=== PATIENT | female | born 1960 | race Caucasian/White ===

== ENCOUNTER → 2017-03-13 | Outpatient (CLI) | payer BC ==
[~2017-03-13] MED LIST: ACET1TAB84 PO; FOLI1TAB7 PO; GABA-113 PO; HYDR25TA4 PO; METH2.5T PO; METO25TA3 PO; MTR600X PO; RANI150T3 PO
--- NOTE | 2017-03-13 13:48 | MAMMOGRAPHY REPORT ---
BILATERAL DIGITAL SCREENING MAMMOGRAM TOMOSYNTHESIS WITH CAD: 03/13/2017 CLINICAL HISTORY: Routine screening. Patient has no complaints. TECHNIQUE: Breast tomosynthesis in addition to standard 2D mammography was performed. Current study was also evaluated with a Computer Aided Detection (CAD) system. COMPARISON: Comparison is made to exams dated: 03/12/2016 mammogram, 03/08/2015 mammogram, 03/03/2014 m ammogram, 02/24/2013 mammogram, 02/20/2012 mammogram, and 02/14/2011 mammogram - [facility]. BREAST COMPOSITION: There are scattered areas of fibroglandular density in both breasts. FINDINGS: No suspicious masses, calcifications, or areas of architectural distortion are noted in ei ther breast. There has been no significant interval change compared to prior exams. Bilateral asymme tries are stable, including an asymmetry in the right retroareolar breast on the cc view which is sta ble compared to prior exams including the 2008 exam. IMPRESSION: ACR BI-RADS CATEGORY 2: BENIGN There is no mammographic evidence of malignancy. A 1 year screening mammogram is recommended. The pa tient will receive written notification of the results. Approximately 10% of breast cancers are not detected with mammography. A negative mammographic report should not delay biopsy if a clinically suggestive mass is present. Marcelle Henry M.D. /:03/13/2017 12:10:30 Nailhead Puncher: Vannesa Guadalupe [facility] letter sent: Normal 1/2 BI-RADS Code: ACR BI-RADS Category 2: Benign
== END | disposition home or self-care (01) ==
LOC: C.MAMM 09:09
PROVIDERS: ATTEND Family Medicine
DX: Z12.31 Encounter for screening mammogram for malignant neoplasm of breast (principal)

== ENCOUNTER → 2017-04-03 | Day surgery (SDC) | payer BC ==
[2017-03-31 11:32] VITALS: BMI 27.0
--- NOTE | 2017-03-31 12:11 | PAT Medication Instructions ---
Service Date Mar 31, 2017. Current Home Medication List Hydrochlorothiazide (Hctz), 25 MG PO QAM Metoprolol Succ (Toprol Xl) (Toprol-Xl), 25 MG PO QAM Ranitidine Hcl (Zantac), 150 MG PO HS Medication Instructions For Your Scheduled Surgery - Hold the following medications the morning of surgery: Hydrochlorothiazide (Hctz), 25 MG PO QAM - Take the following medications the morning of surgery with a sip of water OTHERWISE NOTHING TO EAT OR DRINK AFTER MIDNIGHT: Metoprolol Succ (Toprol Xl) (Toprol-Xl), 25 MG PO QAM - Take the following medications as scheduled the night before surgery: Ranitidine Hcl (Zantac), 150 MG PO HS If you have any questions please call us at [phone] or [phone] or [phone]
[2017-03-31 13:18] LABS: BASO % 0.7 %; BASO ABS # 0.04 K/uL (0-0.2); COMPLETE YES; EOS % 4.9 %; HEMATOCRIT 43.7 % (37-47); IG% 0.2 %; LYMPH % 28.4 %; LYMPH ABS # 1.68 K/uL (1.2-3.4); MEAN CELL VOLUME 88.6 fL (80-100); MEAN CORPUSCULAR HEMOGLOBIN 30.2 pg (25-34); MEAN CORPUSCULAR HGB CONC 34.1 g/dl (32-36); MEAN PLATELET VOLUME 10.5 fL (7.4-10.4); MONO % 6.8 %; PLATELET COUNT 399 K/uL (130-400); RED BLOOD COUNT 4.93 M/uL (4.2-5.4); WHITE BLOOD COUNT 5.91 K/uL (4.8-10.8)
[2017-03-31 15:11] LABS: CALCIUM 9.7 mg/dl (8.5-10.1); CREATININE 0.83 mg/dl (0.60-1.20); POTASSIUM 3.8 mmol/L (3.5-5.1)
[2017-03-31 15:14] LABS: ALB/GLOB RATIO 1.1 (0.9-2)
[~2017-04-03] VITALS: Ht 167.6 cm; Wt 75.7 kg
[~2017-04-03] MED LIST changes: +ATROPINE SULFATE 0.1 MG/ML 5ML SYR IV PRN; +CHECK SCOPOLAMINE PATCH PLACEMENT SCH; +EpHEDrine SULFATE INJ 50 MG/ML AMP IV PRN; +FENTANYL CITRATE INJ 50 MCG/1 ML 2 ML VIAL IV PRN; +FENTANYL CITRATE INJ 50 MCG/1 ML 2 ML VIAL ONE; -FOLI1TAB7 PO; -GABA-113 PO; +HYDROmorphone INJ 1 MG/ML SYR IV PRN; +IBUPROFEN 600 MG TAB PO PRN; +KETOROLAC TROMETHAMINE 30 MG/ML VIAL ONE; +LACTATED RINGER'S 1000ML 1,000 ML IV SCH; +LIDOCAINE HCL 2% 2 ML VIAL (20MG/ML) ONE; -METH2.5T PO; +METOCLOPRAMIDE HCL INJ 5 MG/ML 2 ML VIAL IV PRN; +MIDAZOLAM HCL 1 MG/ML 2ML VIAL ONE; +ONDANSETRON INJ 2 MG/ML 2 ML VIAL IV PRN; +OXYCODONE/ACETAMINOPHEN 5-325 TAB PO PRN; +PROPOFOL IV EMULSION 10 MG/ML 20 ML VIAL IV ONE; +SCOPOLAMINE 1.5 MG TDSY TD ONE; +SODIUM CHLORIDE 0.9% 1000ML 1,000 ML IV SCH
[2017-04-03 05:31] VITALS: BP 133/78; PULSE 70; TEMP 37; O2SAT 98; Ht 167.6 cm; Wt 75.7 kg
--- NOTE | 2017-04-03 06:57 | History & Physical Bridge Note ---
H&P Re-Evaluation Bridge Note: I have examined the patient, reviewed the History & Physical and in the interval since the performance of the History & Physical I have noted the following changes of clinical significance: No changes noted
--- NOTE | 2017-04-03 08:14 | Discharge Instructions ---
Discharge Instructions Date of Service Apr 03, 2017. 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 Instructions / Follow-Up Instructions / Follow-Up ACTIVITY RECOMMENDATIONS: * Avoid tampons, douching, hot tubs, pools, and intercourse until bleeding has stopped. * May shower as usual. * No strenuous activity for 24-48 hours. After 24-48 hours, you may do anything you feel like doing (driving and sports are okay). SPECIAL CARE INSTRUCTIONS: Special Diet: * Mild nausea may occur in the immediate post-operative period. * Take clear liquids such as tea, cola or bouillon until all nausea has subsided; you may then resume your normal diet. Special Care: * Light bleeding and vaginal spotting can last from a few days to 3-4 weeks. Call your doctor if bleeding becomes heavier than the heaviest part of your period. * Check your temperature twice a day for one week. If it goes above 100.4 degrees Fahrenheit (38.0 Celsius), notify your doctor. * Call your doctor's office for an appointment for 6 weeks after your surgery. FOLLOW-UP VISIT: Call your doctor's office for an appointment for 6 weeks after your surgery. Current Hospital Diet Patient's current hospital diet: Discharge Diet Recommended Diet: Regular Diet Procedures Procedures Performed: Exam Under Anesthesia, Hysteroscopy, Dilation Currettage, Endometrial Polyp Resection with Myosure Pending Studies Studies pending at discharge: no Medical Emergencies . Who to Call and When: Medical Emergencies: If at any time you feel your situation is an emergency, please call 911 immediately. . Non-Emergent Contact Non-Emergency issues call your: Specialist . . "Provider Documentation" section prepared by Oscar Delong. . VTE Core Measure Inpt VTE Proph given/why not?: Treatment not indicated
--- NOTE | 2017-04-03 08:17 | [facility] Post Operative Brief Note ---
Immediate Operative Summary Operative Date Apr 03, 2017. Pre-Operative Diagnosis Post Menopausal Bleeding Post-Operative Diagnosis Same as preoperative Procedure(s) Performed 1.Exam Under Anesthesia 2. Hysteroscopy 3.Dilation Currettage 4Endometrial Polyp Resection with Myosure Surgeon Dr. Oscar Delong Ug Designer Surgeon(s) None per surgeon Estimated Blood Loss 10ml Findings Patient was taken to the operating room where she was prepped and draped in normal sterile fashion in the dorsolithotomy position. Bladder was catheterized at 100 mL of clear urine was obtained. Speculum was placed in the vagina and Langley retractor was used to retract anterior vagina. Cervix was identified and found to be grossly normal. Cervix was dilated to a size 8 after uterus was sounded for size The hysteroscope was placed into the uterine cavity and the uterine cavity showed a left wall endometrial polyp. uterus appeared atrophic. Both ostia was identified. Rest of uterine cavity uterus was unremarkable. Myosure device was passed through the outflow tracts of the hysteroscope and resection of the polyp performed without any difficulty. Specimen from the resection is sent for pathology analysis. The hysteroscope was removed and a size 2 sharp curet introduced into uterine cavity curettage performed on all 4 quadrants of the uterus . Specimen from curettage is also sent to pathology . All instruments, retractors and sponges are removed from the vagina and accounted for x2 . There is good Hemostasis and Patient Is Sent to Recovery in Stable Condition Fluids (cc crystalloids) 300CC IVF. Net hysterosocpic fluid loss is 250cc Specimens A.) Endometrial Polyp B.) Endometrial Currettings Drains none Anesthesia general Complication(s) None Disposition Recovery Room / PACU
--- NOTE | 2017-04-03 08:26 | Anesthesiology Progress Note ---
Anesthesia Post Op Note Date & Time Apr 03, 2017 at 08:26 Vital Signs Pain Intensity: 0 Vital Signs Past 12 Hours Date Time Temp Pulse Resp B/P (MAP) Pulse Ox O2 Delivery O2 Flow Rate FiO2 04/03/17 08:20 36.5 57 14 126/79 99 Room Air 04/03/17 08:10 55 14 115/74 100 Oxymask 10 04/03/17 08:00 54 14 124/75 100 Oxymask 10 04/03/17 07:52 36.2 61 14 121/78 100 Oxymask 10 04/03/17 05:31 37 70 18 133/78 (96) 98 Room Air Notes Mental Status: alert / awake / arousable, participated in evaluation Pt Amnestic to Procedure: Yes Nausea / Vomiting: adequately controlled Pain: adequately controlled Airway Patency, RR, SpO2: stable & adequate BP & HR: stable & adequate Hydration State: stable & adequate Anesthetic Complications: no major complications apparent
[2017-04-03 08:35] VITALS: BP 125/68; PULSE 53; TEMP 36.5; O2SAT 98
[2017-04-03 09:05] VITALS: BP 119/69; PULSE 57; O2SAT 97
[2017-04-03 09:35] VITALS: BP 114/69; PULSE 60; TEMP 36.5; O2SAT 98
== END | disposition home or self-care (01) ==
LOC: C.ACU 05:01
PROVIDERS: ATTEND Obstetrics & Gynecology
DX: N95.0 Postmenopausal bleeding (principal); D25.9 Leiomyoma of uterus, unspecified; Z80.49 Family history of malignant neoplasm of other genital organs; Z83.3 Family history of diabetes mellitus; Z82.49 Family history of ischemic heart disease and other diseases of the circulatory system

== ENCOUNTER 2019-12-04 08:20 | Observation (INO) ==
[2019-12-04] MEDS ORDERED: hydroCHLOROthiazide 25 MG TAB PO STA (08:57)
--- NOTE | 2019-12-04 08:57 | Emergency Department Note ---
History of Present Illness General Chief Complaint: Neuro Symptoms/Deficit Stated Complaint: FACIAL NUMBNESS, LOSS OF MEMORY Time Seen by Provider: 12/04/19 08:32 Source: patient and RN notes reviewed Mode of arrival: ambulatory Limitations: other (Recent short-term memory loss) History of Present Illness HPI Narrative: This is a 59-year-old female who presents to the ED with a chief complaint of short-term memory loss that started this morning. The patient was transported here by her . He states that this morning she got up and watch TV, read the paper and had some coffee. He states that she told him about Trump testing negative for the Covid-19 virus. The patient then after a short time began not to remember things that she had said. She asked what day it was. She seemed to be somewhat dazed and confused. The states that he checked her and did not find any focal neurologic deficits. The only complaint she has is that her left lip feels a little numb and she feels like she is not in her body. She states that she feels bewildered. 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 Last week she had been doing a lot of preparations for the virus at the [place]. The patient does not remember conversations that she had with her this morning. She does have long-term memory. She remembers the names of her kids, where they work where they live and even the grandkids. The patient does take medication for blood pressure. She is unsure if she took it this morning. Home Medications Home Medications Medication Instructions Recorded Confirmed Type hydrochlorothiazide 25 mg PO QAM #0 tab 10/12/15 12/04/19 History metoprolol succinate 25 mg PO QAM #30 tab 10/12/15 12/04/19 History acetaminophen [Tylenol Extra 500 mg PO Q6H PRN 12/04/19 12/04/19 History Strength] ibuprofen 600 mg PO Q6H PRN 12/04/19 12/04/19 History Allergies Allergy/AdvReac Type Severity Reaction Status Date / Time succinylcholine Allergy Severe "DIDN'T Unverified 12/04/19 08:58 RELAX ME" Penicillins Allergy Intermediate RASH Verified 12/04/19 08:58 Past Med/Surg History Social History Feels Safe at Home: Yes Smoking Status: Never smoker Review of Systems A total of 10 systems reviewed and were otherwise negative Physical Exam Vital Signs: Vital Signs - 24 hr 12/04/19 08:24 12/04/19 08:49 12/04/19 09:16 Temperature 36.5 C Temperature Source Oral Pulse Rate 106 H Pulse Rate [Finger ] 90 Respiratory Rate 20 16 Respiratory Effort / Characteristics Non-Labored Sponta neous Non-Labored Respiratory Depth Normal Normal Respiratory Patter n Regular Blood Pressure 165/94 H Blood Pressure [Ri ght Arm] 158/89 H Blood Pressure Liv n 117 Blood Pressure Liv n [Right Arm] 112 Pulse Oximetry 100 99 97 Oxygen Delivery Me thod Room Air Room Air Sepsis Recent Feve r Within 48 Hours No Sepsis Action Take n by Nursing No Action Required Physical Exam: VITAL SIGNS: were reviewed as above. GENERAL:Non-toxic in appearance. SKIN: Warm dry and pink. HEAD: Normocephalic and atraumatic. OROPHARYNX: Is clear and moist NECK: Supple without lymphadenopathy or meningismus. LUNGS: Are clear. HEART: Regular rate and rhythm. ABDOMEN: Soft and nontender. EXTREMITIES: Warm and well perfused. NEUROLOGICALLY: Awake alert and oriented without focal deficit. Cranial nerves 2-12 are intact. There is no pronator drift. Cerebellar testing is within normal limits. There is no nystagmus. There is no facial droop. Speech is clear. Vision is grossly normal. No sensory deficits. The patient has some difficulty with recent short-term memory. MUSCULOSKELETAL: Good muscle tone. No evidence of trauma. Strength is symmetric. ALL NURSING NOTES WERE REVIEWED. Course Administered Medications Discontinued Medications Hydrochlorothiazide (Hctz) 25 mg PO NOW STA Stop: 12/04/19 08:58 Last Admin: 12/04/19 09:16 Dose: 25 mg Documented by: [id number] Medical Decision Making Differential Diagnosis Differential includes acute coronary syndrome, myocardial infarction, CVA, TIA, anemia, infection, pneumonia, UTI, pyelonephritis, poor nutrition, dehydration, electrolyte disturbance,hypoglycemia, TGA. Medical Records Attestation: I reviewed the patient's medical records. Home Medications Current Medication List: was personally reviewed by me Laboratory Data Attestation: I reviewed the patient's lab results. Result diagrams: 12/04/19 08:30 12/04/19 08:30 Lab Results 12/04/19 12/04/19 12/04/19 Range/Units 08:30 08:30 09:44 WBC 6.69 (4.8-10.8) K/uL RBC 5.10 (4.2-5.4) M/uL Hgb 15.8 (12.0-16.0) g/dL Hct 45.6 (37-47) % MCV 89.4 (80-100) fL MCH 31.0 (25-34) pg MCHC 34.6 (32-36) g/dL RDW Std Deviation 43.9 (36.4-46.3) fL RDW Coeff of [place] 13.3 (11.5-14.5) % Plt Count 409 H (130-400) K/uL MPV 10.6 H (7.4-10.4) fL Immature Gran % (Auto) 0.1 % Neut % (Auto) 48.2 % Lymph % (Auto) 41.0 % Jackson % (Auto) 7.8 % Eos % (Auto) 2.5 % Baso % (Auto) 0.4 % Immature Gran # (Auto) 0.01 (0.00-0.02) K/uL Neut # (Auto) 3.22 (1.4-6.5) K/uL Lymph # (Auto) 2.74 (1.2-3.4) K/uL Jackson # (Auto) 0.52 (0.11-0.59) K/uL Eos # (Auto) 0.17 (0-0.5) K/uL Baso # (Auto) 0.03 (0-0.2) K/uL Sodium 139 (136-145) mmol/L Potassium 3.3 L (3.5-5.1) mmol/L Chloride 106 (98-107) mmol/L Carbon Dioxide 24 (21-32) mmol/L Anion Gap 9.0 (3-11) BUN 16 (7-18) mg/dl Creatinine 0.91 (0.6-1.2) mg/dl Est Cr Clr Drug Dosing 70.6 ml/min Est GFR ( Amer) 80.0 Est GFR (Non-Af Amer) 69.1 BUN/Creatinine Ratio 17.6 (10-20) Glucose 123 H (70-99) mg/dl Calcium 9.9 (8.5-10.1) mg/dl Total Bilirubin 0.4 (0.2-1) mg/dl AST 22 (15-37) U/L ALT 24 (12-78) U/L Alkaline Phosphatase 84 (45-117) U/L Total Creatine Kinase 123 (26-192) U/L Total Protein 8.8 H (6.4-8.2) gm/dl Albumin 4.2 (3.4-5.0) gm/dl Globulin 4.6 H (2.5-4.0) gm/dl Albumin/Globulin Ratio 0.9 (0.9-2) TSH 3.950 (0.300-4.500) uIu/ml Urine Color Yellow Urine Appearance Clear (Clear) Urine pH 6.0 (4.5-7.5) Ur Specific [place] 1.006 (1.000-1.030) Urine Protein Negative (Negative) Urine Glucose (UA) Negative (Negative) Urine Ketones Negative (Negative) Urine Blood Negative (Negative) Urine Nitrite Negative (Negative) Urine Bilirubin Negative (Negative) Urine Urobilinogen Negative (Negative) Ur Leukocyte Esterase Negative (Negative) Imaging Data Radiologist's Impression: CT head/brain wo con CLINICAL HISTORY: short term memory loss COMPARISON STUDY: No previous studies for comparison. TECHNIQUE: Axial CT of the brain is performed from the vertex to the skull base. IV contrast was not administered for this examination. A dose lowering technique was utilized adhering to the principles of ALARA. CT DOSE: 1498.35 mGy.cm FINDINGS: There is no CT evidence of acute cortical infarction. There is no evidence of midline shift. There is no acute hemorrhage. No calvarial fractures are visualized. There is a 7 mm right posterior parafalcine calcification. There is no evidence of pathologic ventricular dilatation. There is no evidence of acute sinusitis IMPRESSION: No acute intracranial findings XR chest 1V portable CLINICAL HISTORY: weakness COMPARISON STUDY: No previous studies for comparison. FINDINGS: The cardiac and mediastinal contours are normal. There is no evidence of focal pulmonary consolidation. There is no evidence of failure. No pleural effusions are visualized.[ IMPRESSION: No active disease in the chest. ECG Data Attestation: I personally reviewed and interpreted this ECG as follows: Indication: weakness Rate (beats per minute): 99 Rhythm: normal sinus Findings: no PVC, no ST elevation and no prolonged QT Blood Pressure Blood Pressure Findings: Elevated blood pressure Blood Pressure Disposition: Referred to patients primary care provider KRISTIN Neely This is a 59-year-old female who presents to the ED with a chief complaint of short-term memory loss that started this morning. The patient was transported here by her . He states that this morning she got up and watch TV, read the paper and had some coffee. He states that she told him about Chaitanya testing negative for the Covid-19 virus. The patient then after a short time began not to remember things that she had said. She asked what day it was. She seemed to be somewhat dazed and confused. The states that he checked her and did not find any focal neurologic deficits. The only complaint she has is that her left lip feels a little numb and she feels like she is not in her body. She states that she feels bewildered. 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 Last week she had been doing a lot of preparations for the virus at the [facility]. The patient does not remember conversations that she had with her this morning. She does have long-term memory. She remembers the names of her kids, where they work where they live and even the grandkids. The patient does take medication for blood pressure. She is unsure if she took it this morning. The patient's vital signs revealed hypertension and slight tachycardia. She does not recall taking her blood pressure medication this morning. The patient's neuro exam is completely normal other than the subjective numbness in her left lip angle. She does have some short-term memory loss with regards to her conversation with her this morning and reading and watching TV and talking to him about President Chaitanya testing negative for the Covid 19 virus. A twelve-lead EKG shows a normal sinus rhythm at a rate of 99. CT scan of the brain was negative for acute process. CBC and chemistry panel was unremarkable. Urine did not show infection and a chest x-ray was negative for acute disease. The patient was reassessed and told the results of the test. The patient states that she has no recollection of the events of this morning while she was in the hospital or the conversations that she had with me. The patient appears to have findings consistent with transient global amnesia. The patient will be observed in the hospital overnight by the hospitalist for further evaluation and care. Impression & Plan Transient global amnesia Discharge Plan Visit Data Chief Complaint: Neuro Symptoms/Deficit Stated Complaint: FACIAL NUMBNESS, LOSS OF MEMORY ED Provider: Van Taylor Discharge Problem: Transient global amnesia Patient Disposition: Being Evaluated by Hospitalist Forms Stand Alone Forms: [facility] Prescriptions Prescriptions: No Action hydrochlorothiazide 25 mg Tablet 25 mg PO QAM Qty: 0 RF: 0 metoprolol succinate 25 mg Tablet Extended Release 24 Hr 25 mg PO QAM Qty: 30 RF: 0 acetaminophen [Tylenol Extra Strength] 500 mg Tablet 500 mg PO Q6H PRN (Reason: Pain) RF: 0 ibuprofen 200 mg Tablet 600 mg PO Q6H PRN (Reason: Pain) RF: 0 Referrals Referrals: Lance Laird DO [Primary Care Provider] -
[2019-12-04 09:04] LABS: Basophils # (auto) 0.03 K/uL (0-0.2); Basophils % (auto) 0.4 %; Eosinophils # (auto) 0.17 K/uL (0-0.5); Eosinophils % (auto) 2.5 %; Hematocrit (blood only) 45.6 % (37-47); Hemoglobin 15.8 g/dL (12.0-16.0); Immature Granulocytes # (auto) 0.01 K/uL (0.00-0.02); Immature Granulocytes % (auto) 0.1 %; Lymphocytes # (auto) 2.74 K/uL (1.2-3.4); Mean Corpuscular Hgb Conc 34.6 g/dL (32-36); Mean Corpuscular Volume 89.4 fL (80-100); Mean Platelet Volume 10.6 fL (7.4-10.4); Monocytes # (auto) 0.52 K/uL (0.11-0.59); Monocytes % (auto) 7.8 %; Neutrophils # (auto) 3.22 K/uL (1.4-6.5); Neutrophils % (auto) 48.2 %; Platelet Count 409 K/uL (130-400); RDW Coefficient of Variation 13.3 % (11.5-14.5); RDW Standard Deviation 43.9 fL (36.4-46.3); White Blood Count 6.69 K/uL (4.8-10.8)
[2019-12-04 09:11] LABS: Albumin Level 4.2 gm/dl (3.4-5.0); BUN Creatinine Ratio 17.6 (10-20); Calcium 9.9 mg/dl (8.5-10.1); Creatinine Clr Calc Pharmacy 70.6 ml/min; Est GFR (Non-African American) 69.1; Potassium 3.3 mmol/L (3.5-5.1)
--- NOTE | 2019-12-04 09:14 | CT Scan Report ---
CT head/brain wo con CLINICAL HISTORY: short term memory loss COMPARISON STUDY: No previous studies for comparison. TECHNIQUE: Axial CT of the brain is performed from the vertex to the skull base. IV contrast was not administered for this examination. A dose lowering technique was utilized adhering to the principles of ALARA. CT DOSE: 1498.35 mGy.cm FINDINGS: There is no CT evidence of acute cortical infarction. There is no evidence of midline shift. There is no acute hemorrhage. No calvarial fractures are visualized. There is a 7 mm right posterior parafalcine calcification. There is no evidence of pathologic ventricular dilatation. There is no evidence of acute sinusitis IMPRESSION: No acute intracranial findings ACT 112: Negative or not required by law. Electronically signed by: Christiano Cruz M.D. 12/04/2019 9:13 AM
[2019-12-04 09:22] LABS: Albumin Globulin Ratio 0.9 (0.9-2); Bilirubin,Total 0.4 mg/dl (0.2-1); Globulin 4.6 gm/dl (2.5-4.0); Thyroid Stimulating Hormone 3.95 uIu/ml (0.300-4.500); Total Protein 8.8 gm/dl (6.4-8.2)
--- NOTE | 2019-12-04 09:48 | XRay Report ---
XR chest 1V portable CLINICAL HISTORY: weakness COMPARISON STUDY: No previous studies for comparison. FINDINGS: The cardiac and mediastinal contours are normal. There is no evidence of focal pulmonary co nsolidation. There is no evidence of failure. No pleural effusions are visualized.[ IMPRESSION: No active disease in the chest. ACT 112: Negative or not required by law. Electronically signed by: Christiano Cruz M.D. 12/04/2019 9:47 AM
[2019-12-04 09:54] LABS: Appearance Urine Clear (Clear); Bilirubin Urine Negative (Negative); Blood Urine Negative (Negative); Color Urine Yellow; Glucose Urine UA Negative (Negative); Ketones Urine Negative (Negative); Leukocyte Esterase Urine Negative (Negative); Nitrite Urine Negative (Negative); Protein Urine Negative (Negative); Specific Gravity Urine 1.006 (1.000-1.030); Urobilinogen Urine Negative (Negative)
--- NOTE | 2019-12-04 11:01 | History & Physical Report ---
Date of Service December 04, 2019 Assessment & Plan (1) Transient global amnesia: Acute onset amnesia with persistent confusion. No focal neurologic deficits. Normal gait and long-term memory intact. Cont monitoring in the hospital on telemetry. CTA head and neck, MRI brain, EEG. Neuro consulted. (2) HTN (hypertension): Noncompliance with taking medication this morning so was slightly elevated. However, given HCTZ in the ER. Cont Toprol per home regimen. Monitor closely. (3) Rheumatoid arthritis: Not on long-term therapy. No recent issues with flares. (4) DVT prophylaxis: Lovenox Full Code Dispo-to telemetry, pending workup. Likely to home when medically stable. Jacque Arenas DO [facility] Hospitalist History of Present Illness Chief Complaint: Memory loss/confusion Primary Care Provider: Lance Laird DO 59-year-old female presented to the ER with acute onset of confusion. She woke up this morning and appeared to be fine to her but then as she was getting ready for confucianist, she mentioned to her that she felt confused. He reports not thinking much of it until later she came back to him and said again she felt confused. She is not able to remember anything short-term and several times throughout the conversation today she asks me who I am and what she is doing here. Initially when I saw her she knew she was on [facility], but she could not recall the date. She does know her name and she does know her and has memory of long-term things, such as where she works the fact that she has children, etc. There have been no stroke symptoms noted by this morning and she is currently demonstrating no neurologic deficits outside of memory loss. There have been no recent changes in medication per and she does not take significant [id number] medications. She has been under stress coordinating preparedness responses for the current code 19 outbreak at [employer], which is where she works. During her confusion episode this morning reports from the ER doctor states that she was mentioning President Chaitanya having the virus himself. Review of systems otherwise reveals no evidence of pain including no headache, no visual changes or other sensation abnormalities. She has had no issues with gait this morning. Allergies Allergy/AdvReac Type Severity Reaction Status Date / Time succinylcholine Allergy Severe "DIDN'T Unverified 12/04/19 08:58 RELAX ME" Penicillins Allergy Intermediate RASH Verified 12/04/19 08:58 Home Medications Home Medications Medication Instructions Recorded Confirmed Type hydrochlorothiazide 25 mg PO QAM #0 tab 10/12/15 12/04/19 History metoprolol succinate 25 mg PO QAM #30 tab 10/12/15 12/04/19 History acetaminophen [Tylenol Extra 500 mg PO Q6H PRN 12/04/19 12/04/19 History Strength] ibuprofen 600 mg PO Q6H PRN 12/04/19 12/04/19 History Past Med/Surg History Medical History (Updated 12/04/19 @ 15:36 by Jacque Arenas DO) HTN (hypertension) Polyneuropathy Rheumatoid arthritis Spinal stenosis Tubal ligation evaluation Surgical History H/O section H/O thyroidectomy S/P removal of ovarian cyst Family History Mother Coronary heart disease Other Diabetes Social History Preferred Language: Austrian Communication Ability: Effective Beliefs That Will Affect Care: None Current Living Situation: Spouse Other Information That Helps Us Care for You: No Feels Safe at Home: Yes Safety Concerns: Feels Safe At This Time Smoking Status: Never smoker Hx Alcohol Use: No Hx Substance Use: No Review of Systems Review of Systems: All systems reviewed & are unremarkable except as noted in HPI & below Physical Exam Physical Exam: CONSTITUTIONAL: WNWD, vitals as above, generally well- appearing EYES: EOMI bilaterally, PERRL, normal conjunctivae, no scleral icterus, no fundoscopic abnormality ENT: external ear and nose normal, oropharynx clear NECK: trachea midline RESPIRATORY: clear to auscultation bilaterally, no crackles, rales or wheezes, normal respiratory effort CARDIOVASCULAR: regular rate and rhythm, S1 and 2 heard without murmurs, gallops or rubs, no JVD, no peripheral edema GASTROINTESTINAL: normal bowel sounds, soft, nontender, nondistended MUSCULOSKELETAL: strength 5/5 throughout, head is normocephalic and atraumatic SKIN: warm and dry NEUROLOGIC: PERRL, EOMI, no facial palsy, no dysarthria. CN 2-12 grossly intact, no sensory deficit, normal cognition, normal speech, normal finger to nose test and normal Baldo, negative pronator drift with Romberg PSYCHIATRIC: alert cooperative and oriented to person, place and time. Results & Data Vital Signs (Past 12 Hours) Vital Signs Temp Pulse Pulse Resp BP BP Pulse Ox 12/04/19 10:41 91 H 16 146/93 H 96 12/04/19 09:16 90 16 158/89 H 97 12/04/19 08:49 99 12/04/19 08:24 36.5 C 106 H 20 165/94 H 100 Laboratory Results Short CBC 12/04/19 Range/Units 08:30 WBC 6.69 (4.8-10.8) K/uL Hgb 15.8 (12.0-16.0) g/dL Hct 45.6 (37-47) % Plt Count 409 H (130-400) K/uL BMP 12/04/19 08:30 Sodium 139 Potassium 3.3 L Chloride 106 Carbon Dioxide 24 BUN 16 Creatinine 0.91 Glucose 123 H Calcium 9.9 Cardiac Enzymes 12/04/19 Range/Units 08:30 Total Creatine Kinase 123 (26-192) U/L Liver Function 12/04/19 Range/Units 08:30 Total Bilirubin 0.4 (0.2-1) mg/dl AST 22 (15-37) U/L ALT 24 (12-78) U/L Alkaline Phosphatase 84 (45-117) U/L Albumin 4.2 (3.4-5.0) gm/dl Urine 12/04/19 Range/Units 09:44 Urine Color Yellow Urine Appearance Clear (Clear) Urine pH 6.0 (4.5-7.5) Ur Specific [place] 1.006 (1.000-1.030) Urine Protein Negative (Negative) Urine Glucose (UA) Negative (Negative) Diagnostic Findings XR chest 1V portable CLINICAL HISTORY: weakness COMPARISON STUDY: No previous studies for comparison. FINDINGS: The cardiac and mediastinal contours are normal. There is no evidence of focal pulmonary consolidation. There is no evidence of failure. No pleural effusions are visualized.[ IMPRESSION: No active disease in the chest. CT head/brain wo con FINDINGS: There is no CT evidence of acute cortical infarction. There is no evidence of midline shift. There is no acute hemorrhage. No calvarial fractures are visualized. There is a 7 mm right posterior parafalcine calcification. There is no evidence of pathologic ventricular dilatation. There is no evidence of acute sinusitis IMPRESSION: No acute intracranial findings Medications Administered HCTZ 25mg given in ER. Code Status & VTE Plan Code Status Full Code VTE Prophylaxis Plan VTE Prophylaxis will be ordered: Yes
[2019-12-04] MEDS ORDERED: OPTIRAY 320 125ml IV PRN (11:42)
--- NOTE | 2019-12-04 12:00 | CT Scan Report ---
CT angio neck with con CLINICAL HISTORY: transient amnesia POSSIBLE TRANSIENT ISCHEMIC ATTACK COMPARISON STUDY: No previous studies for comparison. TECHNIQUE: CT angiography was performed from the aortic arch to the skull base. MIP imaging was perfo rmed. The patient was scanned in a dynamic helical fashion during intravenous administration of 119 c c of Optiray 320. A dose lowering technique was utilized adhering to the principles of ALARA. CT DOSE: Technique: CT angiogram of the carotid and vertebral arteries was obtained using intravenous contrast and 3-D reconstruction. NASCET criteria was utilized. Findings: The right carotid revealed no evidence of aneurysm and no evidence of dissection. There is no evidenc e of hemodynamic significant stenosis. The left carotid revealed no evidence of hemodynamic significant stenosis. There is no evidence of an eurysm. There is no evidence of dissection. There is no evidence of hemodynamically significant vertebral stenosis. There is no evidence of verte bral dissection. There are several levels of nonhemodynamically significant vertebral artery narrowin g due to facet joint arthropathy. The patient appears to be status post a partial right-sided thyroidectomy. There is a 1 cm left lobe thyroid nodule. IMPRESSION: No evidence of hemodynamically significant carotid or vertebral artery stenosis. No evidence of disse ction. ACT 112: Negative or not required by law. Electronically signed by: Christiano Cruz M.D. 12/04/2019 11:59 AM
[2019-12-04] MEDS ORDERED: POLYETHYLENE (MIRALAX) 17 GM PACK PO PRN (12:02)
[2019-12-04] MEDS ORDERED: ACETAMINOPHEN 325 MG TAB PO PRN (12:02)
--- NOTE | 2019-12-04 12:03 | CT Scan Report ---
CT angio head w con CLINICAL HISTORY: transient amnesia POSSIBLE TRANSIENT ISCHEMIC ATTACK TECHNIQUE: CT angiography of the head was performed in a dynamic helical fashion during intravenous a dministration of 119 cc of Optiray 320. MIP imaging was performed. A dose lowering technique was util ized adhering to the principles of ALARA. CT DOSE: 540.40 mGy.cm COMPARISON STUDY: No previous studies for comparison. FINDINGS: There are no lesion suspicious for aneurysm. There are no major intracranial branch occlusi ons. The dural venous sinuses appear patent. IMPRESSION: Unremarkable CT angiography of the brain ACT 112: Negative or not required by law. Electronically signed by: Christiano Cruz M.D. 12/04/2019 12:02 PM
--- NOTE | 2019-12-04 14:29 | Magnetic Resonance Report ---
MRI OF THE BRAIN WITHOUT CONTRAST CLINICAL HISTORY: transient amnesia COMPARISON STUDY: Head CT dated 12/04/2019 FINDINGS: Sagittal T1, axial diffusion, proton density and T2 weighted axial, coronal FLAIR, and axial T1-weigh tom images were acquired. No intra or extra-axial mass lesions are visualized Axial diffusion-weighted images reveal no evidence of acute or subacute infarction. There is no evidence of ventricular dilatation. Proton density T2-weighted and FLAIR images reveal a a few tiny foci of increased FLAIR signal within the left parietal white matter. This finding is of doubtful acute clinical significance. There are no abnormal flow voids. IMPRESSION: 1. No acute intracranial findings 2. No evidence of acute or subacute infarction 3. No evidence of intracranial mass ACT 112: Negative or not required by law. Electronically signed by: Christiano Cruz M.D. 12/04/2019 2:28 PM
--- NOTE | 2019-12-04 14:59 | Communication Note ---
Date of Service: December 04, 2019 I have seen Mrs. Sanderson today discussed her case with her I reviewed all of her imaging studies including the chest performed MRI scan of her brain and pleased to report that she has emerged from her transient global amnesia and a mildly dazed state but with intact memory function in terms of immediate recall with the exception that she has no recollection about 4 to 5 hours of time starting this morning when she was getting ready for mandaen and extending up to the time she was in the emergency room here but memory for that is patchy and episodic Exam with the exception of her frustration at being unable to recall her day is totally normal neurologically and all imaging studies etc. have failed to show any evidence for a completed vascular event, potential source of emboli in the extracranial or intracranial vascular compartments and pending studies include an echocardiogram and an EEG which will be done tomorrow She has no prior history of similar events, there is no history of a seizure disorder, there is a vague family history for migraines and I believe 1 of her children on her mother side of the family but she has never suffered from any only problem she has underlying all this is a little hypertension, rheumatoid arthritis and perhaps some cholesterol issues I suspect this is transient global amnesia of an idiopathic type. I do not think this is a nonconvulsive seizure pattern but we need to get EEG for sake of completeness we also need to do the echocardiogram to be sure there is no source of potential cardiac embolization which I strongly doubt Neurology will be back to see her tomorrow and I suspect she can be discharged once EEG is normal and she is observed for another 24 hours I would suggest that she take a single baby aspirin a day just to be on the "safe" side. A full consultation has been dictated but will not be typed until later and I have discussed impressions with Dr. Arenas who is her current attending physician Flaco Mahan MD
--- NOTE | 2019-12-04 15:47 | Consultation Report ---
DATE OF CONSULTATION: 12/04/2019 HISTORY OF PRESENT ILLNESS: Deisy is 59 years old, is currently a patient of Dr. Lance Laird and was admitted to the hospital today after her noted a confused state this morning shortly after she awakened and while she was in the process of getting ready to go to yarsanism. In the hours preceding this, she had been awake, alert, oriented, had been able to discuss articles in the paper. Noted the president had had a negative Covid-19 test and continued to express her concerns about her job at [employer] where there has been some obvious stress about the return of students and how to handle the current epidemic. She was also concerned about her aging mother who is in an extended care facility that is going to be shut down now in the setting of the impending pandemic. She seemed otherwise well, however, but then he noted her to be confused, repetitious, asked repeatedly what day it was, what they were doing, what had just happened and he became concerned, gave her several aspirin and brought her to the Emergency Room where she continued to have the confused, dazed appearance and the repeated questioning with evidence for absolute absence of any immediate memory, yet quite intact remote memory for her children's names, her occupation, her position, her medications, but some vague memory about issues that had just occurred in her life over the past week. These were a little disorganized and incomplete. All this started perhaps 8:00 in the morning and then she apparently began to have some recall of the events around noon, and by the time I saw her today at 2:30 after she emerged from the MRI, she was pretty much back to her baseline in terms of memory function, but was quite frustrated about having "lost an entire day" and was obviously upset about what might have just happened. She denied any headache or visual disturbances, although at some point during her stay in the hospital, she must have talked about some numbness of her lips. This is one of the recorded complaints. She denies this now. PAST MEDICAL HISTORY: Reveals some hypertension, rheumatoid arthritis, and I believe some dyslipidemia. MEDICATIONS: List includes hydrochlorothiazide, metoprolol, Tylenol and ibuprofen. She is really not on any medications to lower cholesterol. ALLERGIES: SHE HAS ALLERGIES TO SUCCINYLCHOLINE AND PENICILLINS. FAMILY HISTORY: Positive for some migraine headaches in her mother and apparently one of her children, but not in her. SOCIAL HISTORY: Reveals her to be a nonsmoker, nonconsumer of ethanol, to be employed at the [employer], to be . 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 REVIEW OF SYSTEMS: Reveals recent stress over the Covid-19 epidemic and her mother's need to be isolated in a intermediate, but otherwise there has been no recent weight loss, weight gain, fevers, sweats, chills, upper respiratory tract symptomatology, problems with head, eyes, ears, nose and throat, cardiovascular, pulmonary, gastrointestinal, genitourinary, musculoskeletal, dermatologic or hematologic systems. PHYSICAL EXAMINATION: GENERAL: She was alert, cooperative, oriented in 3 spheres when I saw her, but in the Emergency Room, she was oriented, but not particularly to time and kept repeating and asking what time it was. Now, she can tell me she is in [facility], has no recall of this morning but can recall being in the MRI, can recall a few things about the Emergency Room, knows her and her children's names, issues about her job, etc. She is modestly overnourished. VITAL SIGNS: Her blood pressure is 146/93, pulse is 91, respirations are 16. She has a temperature of 36.5. HEENT: Has normal examination of head, eyes, ears, nose and throat, but no audible bruits. Normal eye movements, poorly seen ocular fundi. Good visual miller. Normal dentition and mucosa and clear speech. NECK: I do not hear any carotid bruits. HEART: There are no cardiac murmurs. Peripheral pulses are fine. MUSCULOSKELETAL: There are no joint deformities. There is no peripheral edema. NEUROLOGIC: Cranial nerves are quite intact revealing normal eye movements, miller, facial motility and strength, facial sensation, speech and lingual movements, and neck flexor strength. Gait, station and coordination are absolutely normal without any ataxia, spasticity, drift, pronation sign, tremor, tics, choreiform activity. Reflexes are all 1+ symmetrical. Toes are downgoing. No El signs are seen. Strength testing is normal and sensation is intact to vibration, light touch, and temperature. Basic laboratory studies were reviewed and her CBC and basic metabolic profiles are normal. Imaging studies of the extracranial vasculature with CT angiography is absolutely normal and MRI of the brain was just reported as normal with the exception of a few high T2 intensity signal in areas in the subcortical white matter which are highly nonspecific and are probably not inconsistent with her age. There is certainly nothing in the medial temporal lobes to suggest a recent infarct or prior areas of involvement. An echocardiogram has been ordered but is pending and an EEG has been ordered. The clinical diagnosis here is transient global amnesia. She is very typical in the manner of her presentation and clinical course with clearing of memory now about 6-8 hours into the actual event, which is about a typical duration in my experience. I think she will not be found to have any evidence for a cardiogenic source of emboli or an underlying potential seizure disorder, but for the sake of completeness, these 2 tests need to be completed and I would place her on a baby aspirin per day, acting on the assumption that this is a vascular-mediated syndrome and an antiplatelet anticoagulation in low dose certainly will not be harmful particularly in a woman who is already a little hypertensive and is approaching age 60. I will review the EEG tomorrow and Ronda Avilez PA-C and myself will be back to see her in the afternoon, at which point, I suspect she will be able to be discharged and my advice would be to take another day or so off work depending on how she feels, although my suspicions are she will be anxious to go back to work on Thursday. PURVI
[2019-12-04] MEDS ORDERED: ENOXAPARIN INJ 40 MG/0.4 ML SYR SQ SCH (18:00)
[2019-12-05 07:30] LABS: Hemoglobin 15.3 g/dL (12.0-16.0); Mean Corpuscular Hemoglobin 30.7 pg (25-34); Mean Corpuscular Hgb Conc 34.8 g/dL (32-36); Mean Corpuscular Volume 88.4 fL (80-100); Mean Platelet Volume 10.5 fL (7.4-10.4); Platelet Count 380 K/uL (130-400); RDW Coefficient of Variation 13.5 % (11.5-14.5); RDW Standard Deviation 43.4 fL (36.4-46.3); Red Blood Count 4.98 M/uL (4.2-5.4); White Blood Count 6.75 K/uL (4.8-10.8)
[2019-12-05 08:14] LABS: BUN Creatinine Ratio 17.4 (10-20); Calcium 9.9 mg/dl (8.5-10.1); Creatinine Clr Calc Pharmacy 69.4 ml/min; Est GFR (Non-African American) 68.2
[2019-12-05 08:50] LABS: Potassium 3.5 mmol/L (3.5-5.1)
[2019-12-05 08:51] LABS: Magnesium 2.2 mg/dl (1.8-2.4)
[2019-12-05] MEDS ORDERED: hydroCHLOROthiazide 25 MG TAB PO SCH (09:00)
[2019-12-05] MEDS ORDERED: METOPROLOL SUCC 25MG EXT REL TAB PO SCH (09:00)
[2019-12-05] MEDS ORDERED: ASPIRIN 81 MG ECTAB PO SCH (09:00)
--- NOTE | 2019-12-05 12:37 | Hospitalist Progress Note ---
Date of Service December 05, 2019 Assessment & Plan (1) Transient global amnesia: Presented with acute onset amnesia and there is been cleared now. No recent memory impairment and no confusion No focal neurologic deficits. Normal gait and long-term memory intact. CTA head and neck, MRI brain-remain unremarkable, EEG is pending. Neuro consulted-appreciate input and recommendation. If the EEG reports comes back and are negative for any seizure activity she will be discharged home this afternoon (2) HTN (hypertension): Noncompliance with taking medication this morning so was slightly elevated. However, given HCTZ in the ER. Cont Toprol per home regimen. Monitor closely. (3) Rheumatoid arthritis: Not on long-term therapy. No recent issues with flares. (4) DVT prophylaxis: Lovenox Full Code Dispo-to telemetry, pending workup. Likely to home when medically stable. Admission and Anticipated Discharge Date Admission Date: December 04, 2019 Subjective The patient is seen and examined in medical telemetry unit in presence of the family members She denies to have any memory impairment as of today but she still cannot remember what happened on the day of admission Denies any numbness and tingling involving any of the extremities Denies any weakness involving any side of the body in particular Review of Systems Review of Systems: All systems reviewed and are unremarkable except as noted below Physical Exam Physical Exam: Lying in bed without any acute symptoms Constitutional: no acute distress and not ill appearing Eyes: PERRL, conjunctivae normal, anicteric sclerae ENMT: external ear and nose normal, oropharynx normal Neck: trachea midline, no thyromegaly Respiratory: normal respiratory effort; no respiratory distress Auscultation: lungs clear to auscultation bilaterally Cardiovascular: Rate/Rhythm: regular rate and regular rhythm Heart Sounds: no murmur Gastrointestinal (Abdomen): Inspection/Auscultation: abdomen normal to inspection and normal bowel sounds Neurologic: moves all extremities; no focal motor deficits Lymphatic: no cervical or axillary lymphadenopathy Results & Data ([facility]) Vital Signs (Past 12 Hours) Vital Signs Temp Pulse Pulse Resp BP Pulse Ox 12/05/19 11:28 36.5 C 84 18 131/86 92 12/05/19 08:00 84 12/05/19 07:33 36.8 C 83 16 156/82 H 95 12/05/19 04:21 36.8 C 73 20 114/71 96 Laboratory Results Short CBC 03/16/20 Range/Units 06:58 WBC 6.75 (4.8-10.8) K/uL Hgb 15.3 (12.0-16.0) g/dL Hct 44.0 (37-47) % Plt Count 380 (130-400) K/uL BMP 12/05/19 12/05/19 06:58 08:27 Sodium 138 Potassium 3.5 Chloride 104 Carbon Dioxide 27 BUN 16 Creatinine 0.92 Glucose 121 H Calcium 9.9 Medications Administered Current Inpatient Medications Acetaminophen (Tylenol) 650 mg PO Q4H PRN PRN Reason: Pain or Fever Stop: 01/03/20 12:01 Last Admin: 12/05/19 00:08 Dose: 650 mg Documented by: Aspirin (Ecotrin Ectab) 81 mg PO [facility] Stop: 01/04/20 08:59 Last Admin: 12/05/19 08:37 Dose: 81 mg Documented by: Enoxaparin Sodium (Lovenox) 40 mg SQ Q24H [facility] Stop: 01/03/20 17:59 Last Admin: 12/04/19 18:09 Dose: 40 mg Documented by: Hydrochlorothiazide (Hctz) 25 mg PO [facility] Stop: 01/04/20 08:59 Last Admin: 12/05/19 08:36 Dose: 25 mg Documented by: Ioversol (Optiray 320 125ml) 119 ml IV ONCE PRN PRN Reason: Interaction Checking Stop: 12/08/19 11:41 Last Admin: 12/04/19 11:42 Dose: 119 ml Documented by: Metoprolol Succinate (Toprol Xl) 25 mg PO [facility] Stop: 01/04/20 08:59 Last Admin: 12/05/19 08:36 Dose: 25 mg Documented by: Polyethylene Glycol (Miralax Powder Packet) 17 gm PO DAILY PRN PRN Reason: Constipation Stop: 01/03/20 12:01
--- NOTE | 2019-12-05 15:27 | Communication Note ---
Date of Service: December 05, 2019 Deisy is absolutely back to her baseline. Yesterday I thought she was improved in terms of that she was actually still a little amnestic and does not recall the actual details of my visit with her but does remember seeing me. Her children visited shortly after I did and after they were in the room for about an hour her memory return to bear weight he considers her baseline and has remained there ever since. Certainly the exam today reveals her to be alert cooperative oriented in 3 spheres pleasant with intact cranial nerves normal station gait and coordination without weakness drift pronation sign and with normal sensation EEG is completely normal during wakefulness and sleep She does relate now few more headaches since she admitted to yesterday and there is a family history of her headaches in her mother and in her daughter so 1 wonders now since she did develop a headache in the period of time she was recovering from this amnestic event, whether or not this was a vasospastic migrainous affair The issue is academic, she has multiple vascular risk factors albeit low-grade once and to be on the safe side I would simply have her take an aspirin a day (81 mg) I think she should be seen by neurology in about 3 to 4 weeks just for sake of completeness I would recommend she take a few days off from work as she was under quite a bit of stress and this may well have precipitated the event if indeed it was a migraine. She has plenty of sick days and vacation time at this point the [facility] probably not very active with ongoing student care as many have not obviously returned to campus under the restrictions due to the coronavirus I believe she could be discharged today unless interns have a concern about o ther aspects of her medical care Flaco Mahan MD
--- NOTE | 2019-12-05 15:31 | Electroencephalogram ---
EEG Procedure Note Date of Service December 05, 2019 Start / End Times Start Time: 0800 End Time: 0825 Referring Physician Flaco Mahan MD History Transient global amnesia Home Medication List Home Medications Medication Instructions Recorded Confirmed Type hydrochlorothiazide 25 mg PO QAM #0 tab 10/12/15 12/04/19 History metoprolol succinate 25 mg PO QAM #30 tab 10/12/15 12/04/19 History acetaminophen [Tylenol Extra 500 mg PO Q6H PRN 12/04/19 12/04/19 History Strength] ibuprofen 600 mg PO Q6H PRN 12/04/19 12/04/19 History aspirin 81 mg PO QAM 30 Days #30 tab 12/05/19 Rx Inpatient Medication List Acetaminophen (Tylenol) 650 mg PO Q4H PRN PRN Reason: Pain or Fever Stop: 01/03/20 12:01 Last Admin: 12/05/19 00:08 Dose: 650 mg Documented by: [id number] [facility]irin (Ecotrin Ectab) [facility] Stop: 01/04/20 08:59 Last Admin: 12/05/19 08:37 Dose: 81 mg Documented by: [id number] Enoxaparin Sodium (Lovenox) 40 mg SQ Q24H [facility] Stop: 01/03/20 17:59 Last Admin: 12/04/19 18:09 Dose: 40 mg Documented by: [id number] Hydrochlorothiazide (Hctz) 25 mg PO QAM [facility] Stop: 01/04/20 08:59 Last Admin: 12/05/19 08:36 Dose: 25 mg Documented by: [id number] Ioversol (Optiray 320 125ml) 119 ml IV ONCE PRN PRN Reason: Interaction Checking Stop: 12/08/19 11:41 Last Admin: 12/04/19 11:42 Dose: 119 ml Documented by: [id number] Metoprolol Succinate (Toprol Xl) 25 [facility] Stop: 01/04/20 08:59 Last Admin: 12/05/19 08:36 Dose: 25 mg Documented by: [id number] Discontinued Medications Hydrochlorothiazide (Hctz) 25 mg PO NOW [facility] Stop: 12/04/19 08:58 Last Admin: 12/04/19 09:16 Dose: 25 mg Documented by: [id number] Description This is a 21 electrode EEG with a single channel dedicated to limited EKG. The electrodes were placed in accordance with the International 10-20 system. This EEG was done as a bedside recording with simultaneous audio analysis of patient movement and behavior. Photic stimulation is performed. Drowsiness/sleep not recorded. Under these conditions there is evidence for a normal background rhythm in the alpha range of up to 10 Hz maximum frequency and 30 V of maximal amplitude. This is back to the posterior head regions bilaterally symmetrical. Polymorphic mid frequency modest amplitude theta activity seen in symmetrical fashion over the central regions. Beta activity seen bifrontally. Photic stimulation provokes a modest driving response with no other abnormal features Drowsiness light sleep are not recorded No time during the waking tracing is evidence for potentially epileptogenic activity Interpretation This is a normal EEG during wakefulness Clinical Correlation This EEG is normal failing to reveal evidence for focal or generalized encephalopathy and failing to reveal evidence for potentially epileptogenic activity. Flaco Mahan MD
--- NOTE | 2019-12-05 22:27 | Electrocardiogram Report ---
Test Reason : Blood Pressure : / mmHG Vent. Rate : 099 BPM Atrial Rate : 099 BPM P-R Int : 150 ms QRS Dur : 082 ms QT Int : 358 ms P-R-T Axes : 036 -13 078 degrees QTc Int : 459 ms Normal sinus rhythm Possible Left atrial enlargement Low voltage QRS Cannot rule out Anterior infarct (cited on or before 12-OCT-2015) Possible Inferior infarct Abnormal ECG When compared with ECG of 12-OCT-2015 00:57, No significant change Confirmed by Khadar Crawley ([id number]) on 12/05/2019 10:27:58 PM Referred By: REFERRED SELF Confirmed By:Khadar Crawley
--- NOTE | 2019-12-06 07:23 | Discharge Summary ---
Date of Service December 06, 2019 Admission HPI Per Admitting Provider 59-year-old female presented to the ER with acute onset of confusion. She woke up this morning and appeared to be fine to her but then as she was getting ready for restorationist, she mentioned to her that she felt confused. He reports not thinking much of it until later she came back to him and said again she felt confused. She is not able to remember anything short-term and several times throughout the conversation today she asks me who I am and what she is doing here. Initially when I saw her she knew she was on [facility], but she could not recall the date. She does know her name and she does know her and has memory of long-term things, such as where she works the fact that she has children, etc. There have been no stroke symptoms noted by this morning and she is currently demonstrating no neurologic deficits outside of memory loss. There have been no recent changes in medication per and she does not take significant [id number] medications. She has been under stress coordinating preparedness responses for the current code 19 outbreak at [facility] [employer], which is where she works. During her confusion episode this morning reports from the ER doctor states that she was mentioning President Chaitanya having the virus himself. Review of systems otherwise reveals no evidence of pain including no headache, no visual changes or other sensation abnormalities. She has had no issues with gait this morning. Admission Exam Per Admitting Provider Physical Exam: CONSTITUTIONAL: WNWD, vitals as above, generally well- appearing EYES: EOMI bilaterally, PERRL, normal conjunctivae, no scleral icterus, no fundoscopic abnormality ENT: external ear and nose normal, oropharynx clear NECK: trachea midline RESPIRATORY: clear to auscultation bilaterally, no crackles, rales or wheezes, normal respiratory effort CARDIOVASCULAR: regular rate and rhythm, S1 and 2 heard without murmurs, gallops or rubs, no JVD, no peripheral edema GASTROINTESTINAL: normal bowel sounds, soft, nontender, nondistended MUSCULOSKELETAL: strength 5/5 throughout, head is normocephalic and atraumatic SKIN: warm and dry NEUROLOGIC: PERRL, EOMI, no facial palsy, no dysarthria. CN 2-12 grossly intact, no sensory deficit, normal cognition, normal speech, normal finger to nose test and normal Baldo, negative pronator drift with Romberg PSYCHIATRIC: alert cooperative and oriented to person, place and time. Principal Diagnosis Transient global amnesia, hypertension, stable rheumatoid arthritis Discharge Exam Constitutional no acute distress and not ill appearing Eyes PERRL, conjunctivae normal, anicteric sclerae ENMT external ear and nose normal, oropharynx normal Neck trachea midline, no thyromegaly Respiratory normal respiratory effort; no respiratory distress Auscultation: lungs clear to auscultation bilaterally Cardiovascular Rate/Rhythm: regular rate and regular rhythm Heart Sounds: no murmur Gastrointestinal (Abdomen) Inspection/Auscultation: abdomen normal to inspection and normal bowel sounds Neurologic moves all extremities; no focal motor deficits Lymphatic no cervical or axillary lymphadenopathy Discharge Data Allergies Allergy/AdvReac Type Severity Reaction Status Date / Time succinylcholine Allergy Severe "DIDN'T Unverified 12/04/19 08:58 RELAX ME" Penicillins Allergy Intermediate RASH Verified 12/04/19 08:58 Consultations 12/04/19 10:35 ED Decision to Admit Stat 12/04/19 10:57 ED Decision to Admit Stat 12/04/19 12:02 Consult Neurology Routine Ordered Studies 12/04/19 08:47 CT head/brain wo con Stat 12/04/19 11:05 CT angio head w con Routine CT angio neck with con Routine 12/04/19 12:02 MR brain wo con Routine Hospital Course (1) Transient global amnesia: Presented with acute onset amnesia and there is been cleared now. No recent memory impairment and no confusion No focal neurologic deficits. Normal gait and long-term memory intact. CTA head and neck, MRI brain-remain unremarkable, EEG is pending. Neuro consulted-appreciate input and recommendation. If the EEG reports comes back and are negative for any seizure activity she will be discharged home this afternoon (2) HTN (hypertension): Noncompliance with taking medication this morning so was slightly elevated. However, given HCTZ in the ER. Cont Toprol per home regimen. Monitor closely. (3) Rheumatoid arthritis: Not on long-term therapy. No recent issues with flares. (4) DVT prophylaxis: Lovenox Full Code Dispo-to telemetry, pending workup. Likely to home when medically stable. Total Time Total Time Spent Total Time Spent (In Minutes): 35 minutes Total Time Includes: Examination of the Patient, Discharge Planning, Medication Reconciliation and Communication With Other Providers Discharge Plan Discharge Items Patient Disposition: Home - Self-Care Reason For Visit: TRANSIENT AMNESIA Discharge Diagnosis: Transient global amnesia, hypertension, stable rheumatoid arthritis Condition on Discharge: Good Activity: Resume your previous activity Non-emergency contact: Primary Care Provider Call non-emergency contact if: you have any medication questions and your symptoms worsen Follow-up/Referrals: Lance Laird, [Primary Care Provider] - 12/09/19 1:20 pm Diet: Low Sodium (2gm) Addtl Attending Provider Instructions: Take precaution to avoid fall Pending Studies at Discharge: No Stand-Alone Forms: My [facility] [employer], Smoking Cessation Medications and DC Order Prescriptions: New aspirin 81 mg Tablet,Delayed Release (Dr/Ec) 81 mg PO QAM 30 Days Qty: 30 RF: 0 Continued hydrochlorothiazide 25 mg Tablet 25 mg PO QAM Qty: 0 RF: 0 metoprolol succinate 25 mg Tablet Extended Release 24 Hr 25 mg PO QAM Qty: 30 RF: 0 acetaminophen [Tylenol Extra Strength] 500 mg Tablet 500 mg PO Q6H PRN (Reason: Pain) RF: 0 ibuprofen 200 mg Tablet 600 mg PO Q6H PRN (Reason: Pain) RF: 0 Discharge Orders: Discharge Order (Routine); Ordered 12/05/19 Ordered By: Jovany Bui Admission Data Admit Date/Time: 12/04/19 11:16 Attending Provider: Jovany Bui Admit Provider: Jacque Arenas Primary Care Provider: Lance Laird Other Providers: Wesley Prince ; Jacque Arenas ; Flaco Mahan Other Interventions: Discharge Summary Assessment (RN) Last Done: 12/05/19 16:50 DC Date/Time DO NOT enter until pt leaves facility: 12/05/19 18:04
== END 2019-12-05 18:04 | disposition home or self-care (01) ==
LOC: 2N 08:20 → ED 08:20 → SUATTDRO 11:16 → 2N 11:35